=== PATIENT | female | born 1940 | race Caucasian/White ===

== ENCOUNTER 2023-09-07 18:27 | Observation (INO) | payer OTHER, SELFPAY ==
[2023-09-07 11:56] VITALS: BP 153/86
--- NOTE | 2023-09-07 13:40 | ED.GENMED ---
History of Present Illness
General
Chief Complaint: Fall
Source: patient
Exam Limitations: none
Time Seen by Provider: 09/07/23 13:18
Nursing documentation reviewed up to this point in time: agreed with
Travel History
Have you had any contact with someone who has COVID-19?: No
Do you have any symptoms of coronavirus? Fever > 100 degrees, chills, cough, shortness of breath, sore throat, loss of taste or smell, muscle aches, or headache?: No
History of Present Illness
History of Present Illness:
pt is a 83 y/o F with
here after fall mechanical onto buttocks yesterday 3 pm when she accidentally missed a step in her basement. pt says she landed on her buttocks, was able to get herself up and walk up the steps with her cane. she says that she had trouble as the
day went on with getting up from sitting and wasn't able to get up her steps to get to bed at night so she slept in a chair. she did well overnight but has pain wiht movement of her right hip
feels better if she pushes on her buttocks
no numbness/tingling/weakness, no head strike, no incontinence
she also has wounds on her left 4th and 5th fingers from scraping on the railing which she put bandaids on
tetanus is unknown
last dose tylenol 8 am.
Review of Systems
Review of Systems
Allergies reviewed?: Yes
All Other Systems: Not applicable
Phy Exam
Physical Exam
Physical Exam:
GENERAL: Alert , in no apparent distress
HEAD: NCAT
NECK: no midline tenderness, active ROM intact, no paraspinal muscle tenderness;
EYE: pupils equal and reactive, EOMs intact.
ENT: o/p clr, mmm. no hemotympanum
CARDIAC: Regular rate and rhythm, no edema
LUNGS: Clear breath sounds bilaterally, no acute respiratory distress, no wheezes/rales/rhonchi
ABDOMEN: Soft, without focal tenderness, no r/g, no cvat
buttocks: right mild tenderness SI joint; no bruising
NEUROLOGICAL: Alert and oriented, no focal neuro deficits, CN intact, 5/5 strength, sensation intact
SKIN: Warm and dry,
MUSCULOSKELETAL: No edema, well perfused.
right posterior buttocks/hip region pain
able to flex and rotate his knee/hip well
normal neg straight leg raise
PSYCH: Normal and appropriate interaction.
Course
Orders/Labs/Results
Orders:
Orders
09/07/23 13:35
Acetaminophen [Tylenol] 1,000 mg PO NOW STA
Tetanus/Diphth/Acelpertussis [Adacel] 0.5 ml IM .ONCE ONE
Hip, Right 2-3 Views [CR Hip - RT w/wo Pel 2-3 Vw*] Urgent
Comment:
Reason For Exam: right hip posterior pain after fall
Include a pelvis x-ray?: Yes
Lumbar Spine Complete, 4 View [CR Lumbar Spine Comp Min 4 Vw*] Urgent
Comment:
Reason For Exam: lower back/hip pain after fall
09/07/23 Dinner
Regular
At Your Request: Full Participation
Does patient need a safe tray?: No
09/07/23 15:56
CT Pelvis W/o Iv Contrast Urgent
Comment:
Reason For Exam: request by ortho to eval for post ring injury
09/07/23 17:56
Metoprolol [Lopressor] 50 mg PO NOW STA
09/07/23 17:58
Admit/Transfer Patient As Directed
Co-Sign Provider:
Level of Care: Observation services
Assign to:: Medical/Surgical
Physician / Group: hospitalist-Francisco
Diagnosis: pelvic fracture
09/07/23 17:59
Code Status As Directed
Resuscitation Status: Full Code
09/07/23 19:15
HYDROmorphone [Dilaudid] 0.25 mg IV Q4HPRN PRN
Magnesium Hydroxide [Milk of Magnesia] 30 ml PO DAILYPRN PRN
Oxycodone [Roxicodone] 5 mg PO Q4HPRN PRN
Tamsulosin [Flomax] 0.4 mg PO DAILYPRN PRN
09/07/23 19:15
ORTHOPEDIC CONSULT Routine
Consulting Provider: Tam Valadez
Was physician already notified: Yes
Activity As Directed
Activity Level: As Tolerated
Comment: toe touch weight bearing right LE with walker (for 4 weeks) as per ortho
Bladder Scan As Directed
Follow Bladder Retention/Intermittent Cath Algorithm?: Yes
PRN if no void in __ hours: 6
Comment: if not voiding 6 hrs upon arrival to floor, bladder scan & follow algorithm
Intake/ Output As Directed
Frequency: Per unit guidelines
Pneumatic Compression Sleeves As Directed
Type: Knee high
Comment: while in bed
Straight Cath As Directed
Frequency: Per Retention Algorithm
Additional Instructions: straight cath as needed per acute urinary retention algorithm for 24 hrs
Additional Instructions: for bladder scan greater than 400 mL
Vital Signs As Directed
Frequency: Per unit guidelines
Weight Bearing Status As Directed
Weight bearing to: Bilateral lower extremity
Type: Toe touch
Ot Eval And Treat Routine
Pt Eval And Treat Routine
Activity Level: As Tolerated
DX Deep Vein Thrombosis Video Routine
09/07/23 20:00
Acetaminophen [Tylenol] 650 mg PO Q4HWA
Docusate Sodium [Colace] 100 mg PO BID
Sennosides [Senokot] 17.2 mg PO BID
09/08/23 06:02
Complete Blood Count/No Diff IN AM
Comprehensive Metabolic Panel IN AM
Magnesium IN AM
09/08/23 08:00
Amlodipine [Norvasc] 10 mg PO DAILY
09/08/23 18:00
Metoprolol [Lopressor] 50 mg PO QPM
Vital Signs
Initial and Last Documented VS:
Initial Vital Signs
Temp Pulse Resp BP Pulse Ox
98.0 F 91 18 153/86 99
09/07/23 11:56 09/07/23 11:56 09/07/23 11:56 09/07/23 11:56 09/07/23 11:56
Last Documented Vital Signs
Temp Pulse Resp BP Pulse Ox
98.3 F 91 18 185/77 96
09/10/23 19:37 09/10/23 19:37 09/10/23 19:37 09/10/23 19:37 09/10/23 19:37
MDM/Problems Addressed
Differential Diagnosis Includes:
pelvic fracture, contusion
MDM/Problems Addressed:
83 y/o F with mechanical fall yesterday
lives alone
did not strike head
right posterior buttock/groin pain
able to rotate hip
no midline tenderness
xray reviewed by me, superior and inferior pubic ramus
d/w ortho dr valadez who requested CT of the pelvis to exclude intraarticular extension into the SI joint
the CT did not show any extension
pt will be toe touch weight bearing with walker for 4 weeks
she lives alone and has a lot of pain
i spoke with case managment for placement for rehab but she will need to be admitted for PT to see her and eval.
*Critical Care Note
Total Time (30-74mins, 75-104mins- exclusive of procedures): Not Applicable
ED Attending Note
-
Portions of this chart may have been created with voice recognition software.� Occasional wrong word or��sound alike� substitutions may have occurred due to the inherent limitations of voice recognition software.
Discharge Plan
Departure
Patient Disposition: Admit
Date of Disposition: 09/07/23
Time of Disposition: 17:29
Admit to: Med/Surg
Presentation/result/management discussed w/ accepting MD/DO: Hospitalist
Condition: Fair
Covid-19: Not Applicable
Discharge Problem:
Closed pelvic fracture
Interventions
Interventions:
*Risk Screen - Suicide Last Done: 09/07/23 23:31
*General Assessment Last Done: 09/07/23 11:56
*Neglect/Abuse Screening Last Done: 09/07/23 11:56
ED- Fall Risk Assessment Last Done: 09/07/23 18:20
*ED COVID-19 Vaccine History Last Done: 09/07/23 23:31
*Nursing Disposition Last Done: 09/07/23 19:07
ED-Musculoskeletal Assessment Last Done: 09/07/23 12:29
ED- Neurological Assessment Last Done: 09/07/23 12:29
ED-Skin Assessment Last Done: 09/07/23 12:29
Discharge Date and Time
Discharge Date/Time: 09/07/23 19:07
[2023-09-07] MEDS: ADACEL 0.5 ML IM (13:52)
[2023-09-07] MEDS: TYLENOL 1000 MG PO (13:52)
--- NOTE | 2023-09-07 16:11 | CM ---
CM was consulted for possible placement efforts. Patient lives alone and is unable to ambulate safely at this time. Patient pending CT scan for further orthopedic recommendations. CM will continue to follow as needed.
--- NOTE | 2023-09-07 18:03 | HPS.HSE ---
Family Physician
-
Family Physician: Crow Miller
Chief Complaint
-
fall
History of Present Illness
Patient is An 83-year-old female an 83-year-old female who lives alone and walks with a cane due to a history of osteoporosis. Patient stated she was walking down the steps and missed the last step yesterday. She twisted and landed flat on her
back. She did get up on her own and went up the steps. She then started having pain and soreness. She did not have any pain or soreness today. She told her daughter what happened (her daughter is a nurse practitioner) who instructed her to come
to the emergency department. Workup finds her to have nondisplaced pubic rami fractures and the patient is being brought in as observation.
Medical History
Past Medical History
Past Medical History: Reports Other
Additional Past Medical History:
Osteoporosis
Essential hypertension
Torn retina of the left eye
Past Surgical History: Reports Other
Additional Past Surgical History:
4 surgeries on her left eye
Hysterectomy
Social History
Tobacco: Non-smoker
Alcohol: None
Drug: None
Personal: Single
Living: Alone
Family History
Family History: Not pertinent
Allergies / Home Medications
Allergies reflects when Allergies were last updated in [employer].
Home Medications with original date entered in [employer]
Allergy/Medication List:
Allergies
Allergy/AdvReac Type Severity Reaction Status Date / Time
No Known Allergies Allergy Unverified 09/07/23 11:59
Home Medications
amlodipine 10 mg tablet 10 mg PO DAILY 09/07/23
metoprolol tartrate 50 mg tablet 50 mg PO QPM 09/07/23
Medication reconciliation was done by myself
Review of Systems
-
History Source: Patient
A 12 point ROS was completed and negative except as noted: Yes
Constitutional: Reports No Symptoms
EENT: Reports No Symptoms
Respiratory: Reports No Symptoms
Cardiac: Reports No Symptoms
Abdomen/GI: Reports No Symptoms
: Reports No Symptoms
Musculoskeletal: Reports No Symptoms (She is having soreness but no overt pain)
Skin: Reports No Symptoms
Neurological: Reports No Symptoms
Endocrine: Reports No Symptoms
Hematologic/Lymphatic: Reports No Symptoms
Psych: Reports No Symptoms
Physical Exam
Vital Signs
Vital Signs
Temp Pulse Resp BP Pulse Ox
98.0 F 91 18 153/86 99
09/07/23 11:56 09/07/23 11:56 09/07/23 11:56 09/07/23 11:56 09/07/23 11:56
Physical Exam
General: Well Developed, Well Nourished and No Apparent Distress
HEENT: NormoCephalic and Atraumatic; No Oxygen
Respiratory: Clear; No Wheezes, Rales, Rhonchi or Crackles
Cardiac: S1/S2, Regular Rhythm and Murmur (Patient has never been told that she has a murmur)
GI: Soft, Non Tender, Non Distended and Normal Bowel Sounds
Musculoskeletal: No Clubbing and No Cyanosis; No No Edema (Trace edema at the feet bilaterally)
Skin: Warm
Neuro: Awake, Alert and Nonfocal/grossly intact
Psych: Calm
Laboratory Results
-
No labs drawn by the emergency department
Impression/Plan
-
Patient is an 83-year-old female
Fall with pubic rami fractures--usually nonsurgical fractures--orthopedics has been consulted--she can be weightbearing with toe-touch with walker for 4 weeks--CAT scan done of the pelvis shows acute nondisplaced fractures of the right pubic
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
Essential hypertension--continue amlodipine in the morning and metoprolol tartrate in the evening
Osteoporosis--noted--patient is not on any medications for this
Heart murmur--patient has never been told she has a heart murmur--consideration could be made for echocardiogram, however this can be done as an outpatient
Constipation noted by CAT scan--bowel regimen as needed
DVT prophylaxis--sequential compression devices while in bed
CODE STATUS--full code
[2023-09-07 18:15] VITALS: BP 168/112
[2023-09-07] MEDS: LOPRESSOR 50 MG PO (18:18)
[2023-09-07 18:21] VITALS: BMI 29.5
[2023-09-07 19:32] VITALS: BP 177/84
[2023-09-07 19:34] VITALS: BMI 28.5
[2023-09-07] MEDS: SENOKOT PO (21:25)
[2023-09-07] MEDS: COLACE PO (21:25)
[2023-09-07] MEDS: ROXICODONE 5 MG PO (21:27)
[2023-09-07] MEDS: TYLENOL 650 MG PO (21:28)
[2023-09-07 23:19] VITALS: BP 153/63
[2023-09-08] MEDS: TYLENOL PO (01:33)
[2023-09-08] MEDS: TYLENOL 650 MG PO ×5 (04:02→20:25)
[2023-09-08] MEDS: ROXICODONE 5 MG PO ×3 (04:03→23:21)
--- NOTE | 2023-09-08 04:26 | PTCARENOTE ---
1930 received patient to room 409-1 via stretcher. patient OX3, VSS, oriented to room, call barboza and inst on POC. all questions addressed. Call barboza within reach.
[2023-09-08 07:00] LABS: Hematocrit 35.7 % (37.0-47.0); Hemoglobin 12.3 g/dL (12.0-16.0); Mean Corp Hgb Conc. 34.5 g/dL (33.0-37.0); Mean Corpuscular Hgb 31.3 pg (27.0-31.0); Mean Corpuscular Volume 90.8 fL (81.0-99.0); Mean Platelet Volume 10.9 fL (7.4-10.4); Platelet Count 186 10^3/uL (130-400); Red Blood Cell Count 3.93 10^6/uL (4.20-5.40); Red Cell Dist. Width 14.6 % (11.5-14.5); White Blood Cell Count 8.6 10^3/uL (4.8-10.8)
[2023-09-08 07:20] VITALS: BP 152/66
[2023-09-08 07:25] LABS: ALT (SGPT) 18 U/L (0-35); AST (SGOT) 56 U/L (14-36); Albumin 3.7 g/dl (3.5-5.0); Alkaline Phosphatase 74 U/L (38-126); Blood Urea Nitrogen 20 mg/dl (7-17); Carbon Dioxide 28 mmol/L (22-30); Chloride 103 mmol/L (98-107); Estimated Creatinine Clearance 56 ml/min; Glucose 95 mg/dl (70-99); Magnesium 2.1 mg/dl (1.6-2.3); Potassium 4.2 mmol/L (3.5-5.1); Sodium 136 mmol/L (135-145); Total Bilirubin 1.3 mg/dl (0.2-1.3); Total Protein 6.2 g/dl (6.3-8.2); eGFR > 60.00
--- NOTE | 2023-09-08 07:38 | W.PN.UPDATE ---
Addendum entered and electronically signed by Tam Leo MD 09/08/23 12:29:
I evaluated the patient at bedside and agree with the consult note.
83-year-old female who lives alone sustained a trip and fall going down her cellar stairs yesterday. She landed on the right flank and had immediate pain. She has been treated for knee arthritis in the past. She denies distal numbness or tingling
On exam the patient has intact motor distally on the right. She has pain with active elevation and motion of the right leg.
Pelvis x-rays and CT show nondisplaced fractures of the superior and inferior pubic rami on the right. CT scan does not show signs of posterior ring injury such as SI joint widening or sacral fracture.
Assessment and plan:
83-year-old female status post right pelvic ring injury with nondisplaced superior and inferior pubic rami fractures after a fall. We discussed treatment options including nonoperative and operative treatments. We discussed that her fracture
should be able to heal nonoperatively. We discussed touchdown weightbearing on the right lower extremity with use of a walker. She may follow-up in the office in 4 weeks for repeat x-rays. At that time if her x-rays appear unchanged without
displacement and she may advance her weightbearing to weightbearing as tolerated with a walker. All questions were answered.
Maynor Leo MD
Original Note:
Update Note
Progress Note Update
Full orthopedic consult dictated:
Dx: Right acetabular fracture
Plan: Toe-touch weightbearing right lower extremity for 4 weeks, PT/OT, pain control and return to office 4 weeks for x-ray
[2023-09-08] MEDS: DESENEX/MITRAZOL/ZEASORB 1 APPLIC TOPICAL ×2 (09:26→20:25)
[2023-09-08] MEDS: SENOKOT PO (09:26)
[2023-09-08] MEDS: COLACE PO (09:26)
[2023-09-08] MEDS: NORVASC 10 MG PO (09:27)
--- NOTE | 2023-09-08 11:33 | W.PN.HOSP.TC ---
Today's Communication/Plan
-
await PT/OT
Assessment / Plan
Assessment / Plan
pt is an 83 year old female
Fall with pubic rami fractures--nonsurgical--apprec orthopedics--she can be weightbearing with toe-touch R LE with walker for 4 weeks--CAT scan done of the pelvis shows acute nondisplaced fractures of the right pubic acetabular junction and right
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
Essential hypertension--continue amlodipine in the morning and metoprolol tartrate in the evening
Osteoporosis--noted--patient is not on any medications for this
Heart murmur--patient has never been told she has a heart murmur--consideration could be made for echocardiogram, however this can be done as an outpatient
Constipation noted by CAT scan--bowel regimen as needed
DVT prophylaxis--sequential compression devices while in bed
CODE STATUS--full code
Anticipated Discharge: Within 24 hours
Subjective/Interval History
-
Date of Service: September 08, 2023
pt without c/o--waiting for PT
Objective Data
-
Labs:
Laboratory Results
09/08/23
06:02
WBC 8.6
Hgb 12.3
Hct 35.7 L
Plt Count 186
Sodium 136
Potassium 4.2
Chloride 103
Carbon Dioxide 28
BUN 20 H
Creatinine 0.8
Glucose 95
Calcium 10.0
Total Bilirubin 1.3
AST 56 H
ALT 18
Alkaline Phosphatase 74
Vital Signs:
max temp for 24 hours
09/07/23
23:19
Temp 98.5 F
Vital Signs
Temp Pulse Resp BP Pulse Ox
98 F 57 20 152/66 97
09/08/23 07:20 09/08/23 09:27 09/08/23 07:20 09/08/23 09:27 09/08/23 09:21
I&O
09/07/23 09/08/23 09/09/23
06:59 06:59 06:59
Intake Total 0 / 0
Output Total 150 / 150
Balance -150 / -150
Review of Systems
-
All other systems: Reviewed and negative
Physical Exam
-
General: Well Developed, Well Nourished and No Apparent Distress
HEENT: Normocephalic and Atraumatic
Respiratory: Clear to Auscultation; Negative Wheezes or Rhonchi
Cardiac: Regular Rhythm, S1/S2 and Murmur
GI: Soft, Nontender, Nondistended and Normal Bowel Sounds
Musculoskeletal: No Clubbing and No Cyanosis
Neuro: Awake and Alert
--- NOTE | 2023-09-08 12:09 | CM ---
Addendum entered by Fidelina Crawford RN 09/08/23 13:44:
PT & OT recommend skilled rehab.
Phone call to daughter Shari; left message requesting callback today for d/c planning.
Plan probable SNF for rehab.
Addendum entered by Fidelina Crawford RN 09/08/23 12:21:
MCCLELLAN Letter done.
Original Note:
Patient with Dx pelvic Fx. Room air. Toe touch wt bearing R LE with walker for 4 weeks. PT & OT Evals pending.
Met with patient who resides alone in a 2 story house with no PEDRO PABLO when using garage entrance. Bedroom/bath on 2nd floor.
The patient was independent in ADLs and ambulation using her SPC, until she fell.
Patient states she feels she fell at home due to blurred vision OS which has been ongoing post eye surgeries.
Patient unable to drive due to blurred vision and has a friend take her food shopping.
DME - [facility], [facility]
No prior VN or SNF.
PCP - Crow Miller
Pharmacy - [facility] [place]
Patient hoping she can return home. Discussed that if she is not independent in her mobility she will need help at home, otherwise should consider SNF for rehab if recommended.
Plan follow up after PT/OT Evals and contact daughter.
[2023-09-08 13:02] VITALS: BP 154/70; PULSE 71; O2SAT 96
[2023-09-08 13:03] VITALS: BP 154/70; PULSE 68; O2SAT 96
[2023-09-08 15:10] VITALS: BP 141/80
--- NOTE | 2023-09-08 16:14 | PTCARENOTE ---
Pt AAO x3, GREEN, able to position self in bed with minimal assistance. VSS On room air- pulse ox 97%, no c/o SOB. Abd soft,rounded, kiya PO well. Purewick catheter intact/patent mod amts clear evan urine. Resting quietly at present; denies
discomfort. Will continue to monitor.
[2023-09-08] MEDS: LOPRESSOR 50 MG PO (17:59)
[2023-09-08] MEDS: COLACE 100 MG PO (20:25)
[2023-09-08] MEDS: SENOKOT 17.1999999999999993 MG PO (20:25)
[2023-09-08 23:55] VITALS: BP 136/62
[2023-09-09] MEDS: TYLENOL PO ×2 (00:56→05:30)
[2023-09-09] MEDS: ROXICODONE 5 MG PO ×4 (05:44→21:47)
[2023-09-09 07:30] VITALS: BP 129/75
[2023-09-09] MEDS: DESENEX/MITRAZOL/ZEASORB 1 APPLIC TOPICAL ×2 (09:35→20:14)
[2023-09-09] MEDS: SENOKOT 17.1999999999999993 MG PO ×2 (09:36→20:14)
[2023-09-09] MEDS: NORVASC 10 MG PO (09:36)
[2023-09-09] MEDS: COLACE 100 MG PO ×2 (09:36→20:14)
[2023-09-09] MEDS: TYLENOL 650 MG PO ×5 (09:37→23:10)
--- NOTE | 2023-09-09 13:18 | CM ---
Addendum entered by Fidelina Crawford RN 09/09/23 15:50:
SNF referrals reviewed- accepted by both [facility] & [facility].
Spoke with daughter again; she spoke with her mother who wants [facility]. Daughter aware bed will be available tomorrow after SNF auth obtained, and that SNF only has a semi-private room.
Spoke with Coreen, [facility]; they can accept the patient tomorrow once auth is obtained. NPI Dr Morocho [id number], . The phone for report [phone], fax [phone].
Plan insurance auth tomorrow for d/c to [facility] SNF.
Original Note:
Patient with Dx pelvic Fx. Room air. Toe touch wt bearing R LE with walker for 4 weeks. PT & OT recommend skilled rehab.
Spoke with daughter Shari, who is HYDROLOGIC ENGINEER at a SNF in ; discussed short term rehab and local SNFs with ratings. Daughter agrees to referrals to [facility] & [facility] and is hoping for a private room. She will talk with her mother again
about going to SNF.
SNF referrals placed.
Plan follow up SNF referrals.
--- NOTE | 2023-09-09 14:39 | W.PN.HOSP.TC ---
Today's Communication/Plan
-
waiting for d/c
Assessment / Plan
Assessment / Plan
pt is an 83 year old female
Fall with pubic rami fractures--nonsurgical--apprec orthopedics--she can be weightbearing with toe-touch R LE with walker for 4 weeks--CAT scan done of the pelvis shows acute nondisplaced fractures of the right pubic acetabular junction and right
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
Essential hypertension--continue amlodipine in the morning and metoprolol tartrate in the evening
Osteoporosis--noted--patient is not on any medications for this
Heart murmur--patient has never been told she has a heart murmur--consideration could be made for echocardiogram, however this can be done as an outpatient
Constipation noted by CAT scan--bowel regimen as needed
DVT prophylaxis--sequential compression devices while in bed
CODE STATUS--full code
medically stable for d/c
Anticipated Discharge: Within 24 hours
Subjective/Interval History
-
Date of Service: September 09, 2023
pt with pelvic pain with movement
Objective Data
-
Vital Signs:
max temp for 24 hours
09/08/23
15:10
Temp 98.1 F
Vital Signs
Temp Pulse Resp BP Pulse Ox
98.3 F 64 18 129/75 95
09/09/23 07:30 09/09/23 09:36 09/09/23 07:30 09/09/23 09:36 09/09/23 09:00
I&O
09/08/23 09/09/23 09/10/23
06:59 06:59 06:59
Intake Total 0 / 0 960 / 960
Output Total 150 / 150 600 / 600
Balance -150 / -150 360 / 360
Review of Systems
-
All other systems: Reviewed and negative
Physical Exam
-
General: Well Developed, Well Nourished and No Apparent Distress
HEENT: Normocephalic and Atraumatic
Respiratory: Clear to Auscultation; Negative Wheezes or Rhonchi
Cardiac: Regular Rhythm, S1/S2 and Murmur
GI: Soft, Nontender, Nondistended and Normal Bowel Sounds
Musculoskeletal: No Clubbing, No Cyanosis and No Edema
Neuro: Awake
Psych: Calm
[2023-09-09 15:20] VITALS: BP 167/75
[2023-09-09] MEDS: LOPRESSOR 50 MG PO (17:25)
[2023-09-09] MEDS: MILK OF MAGNESIA 30 ML PO (20:15)
[2023-09-09 23:46] VITALS: BP 146/63
[2023-09-10] MEDS: TYLENOL PO (04:05)
[2023-09-10] MEDS: COLACE 100 MG PO ×2 (07:48→19:37)
[2023-09-10] MEDS: SENOKOT 17.1999999999999993 MG PO ×2 (07:48→19:37)
[2023-09-10] MEDS: ROXICODONE 5 MG PO ×3 (07:48→17:51)
[2023-09-10] MEDS: TYLENOL 650 MG PO ×4 (07:49→19:36)
[2023-09-10] MEDS: NORVASC 10 MG PO (07:49)
[2023-09-10] MEDS: DESENEX/MITRAZOL/ZEASORB 1 APPLIC TOPICAL ×2 (07:49→19:40)
[2023-09-10 07:58] VITALS: BP 176/69
--- NOTE | 2023-09-10 10:09 | PTCARENOTE ---
pt aaox3 states 10/10 pin in right hip. pain med given as ordered. pulses present in both feet. room air. breath sounds clear. pure wick in place
--- NOTE | 2023-09-10 13:16 | W.PN.HOSP.TC ---
Today's Communication/Plan
-
d/c to SNF
Assessment / Plan
Assessment / Plan
pt is an 83 year old female
Fall with pubic rami fractures--nonsurgical--apprec orthopedics--she can be weightbearing with toe-touch R LE with walker for 4 weeks--CAT scan done of the pelvis shows acute nondisplaced fractures of the right pubic acetabular junction and right
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
Essential hypertension--continue amlodipine in the morning and metoprolol tartrate in the evening
Osteoporosis--noted--patient is not on any medications for this
Heart murmur--patient has never been told she has a heart murmur--consideration could be made for echocardiogram, however this can be done as an outpatient
Constipation noted by CAT scan--bowel regimen as needed
DVT prophylaxis--sequential compression devices while in bed
CODE STATUS--full code
medically stable for d/c
Anticipated Discharge: Today
Subjective/Interval History
-
Date of Service: September 10, 2023
pt waiting for rehab
Objective Data
-
Vital Signs:
max temp for 24 hours
09/09/23
23:46
Temp 98.5 F
Vital Signs
Temp Pulse Resp BP Pulse Ox
98.1 F 63 18 176/69 96
09/10/23 07:58 09/10/23 07:58 09/10/23 07:58 09/10/23 07:58 09/10/23 07:58
I&O
09/09/23 09/10/23 09/11/23
06:59 06:59 06:59
Intake Total 960 / 960 480 / 480
Output Total 600 / 600 520 / 520
Balance 360 / 360 -40 / -40
Review of Systems
-
All other systems: Reviewed and negative
Physical Exam
-
General: Well Developed, Well Nourished and No Apparent Distress
HEENT: Normocephalic and Atraumatic
Respiratory: Clear to Auscultation; Negative Wheezes or Rhonchi
Cardiac: Regular Rhythm and S1/S2; Negative Murmur
GI: Soft, Nontender, Nondistended and Normal Bowel Sounds
Musculoskeletal: No Clubbing, No Cyanosis and No Edema
Neuro: Awake and Alert
Psych: Calm
--- NOTE | 2023-09-10 13:44 | CM ---
Addendum entered by Charu Martinez 09/10/23 15:15:
Auth approved by Lili for 8 days 09/09-09/16 [id number] update provided to Coreen at [facility]. Patient also approved for ambulance transportation [id number] please call report [phone], fax [phone].
Original Note:
Patient seen at bedside with physician. Patient is accepted at [facility] and will need transportation via ambulance due to fracture. Patient needs updated PT/OT to get authorization, awaiting updated notes. Patient daughter aware of plan and in
agreement. Patient will need auth. CM will continue to follow for discharge planning needs.
Plan; SNF; the phone for report [phone], fax [phone].
[2023-09-10 14:24] VITALS: BP 175/75; O2SAT 98
[2023-09-10 14:26] VITALS: BP 175/75; PULSE 79; O2SAT 97
[2023-09-10 15:20] VITALS: BP 147/67
--- NOTE | 2023-09-10 16:36 | W.DCSUMMARY ---
Discharge Summary
Discharge Data
Date of Admission: 09/07/23
Date of Discharge: 09/10/23
-
Pending Results: No
Hospital Course
Primary care physician : Crow Miller
Principal Discharge diagnosis : Fall with pubic rami fractures
Chronic Discharge diagnosis : Essential hypertension, osteoporosis, heart murmur, constipation
Hospital Course : Patient was an 83-year-old female who lives alone and walks with a cane due to her history of osteoporosis. She stated she was walking down the steps and missed the last step on the day prior to admission. She twisted and landed
flat on her back/buttock. She got up on her own and went up the steps. She then started having pain and soreness. She told her daughter what happened (her daughter was a nurse practitioner) who instructed her to come to the emergency department.
Workup found her to have nondisplaced pubic rami fractures and the patient was brought in as observation.
Problem #1: Fall with pubic rami fractures. Patient was seen in consultation by orthopedics and physical therapy and Occupational Therapy. CAT scan showed acute nondisplaced fractures of the right pubic acetabular junction and right inferior pubic
ramus. These are nonsurgical fractures. Orthopedics is recommending toe-touch with weightbearing as tolerated for 4 weeks. She should follow-up with orthopedics after that. Therapy is recommending skilled rehab. Patient is agreeable to that and
has been accepted.
Problem #2: All other medical issues. These include Essential hypertension, osteoporosis, heart murmur, constipation. These medical issues were stable during her hospitalization. Medications were continued as able. In regards to her heart
murmur, patient has never been told that she has a heart murmur. This can be worked up as an outpatient with echocardiogram. We will defer this to her primary care physician.
Patient is stable for discharge to rehab at this time. If there are any questions regarding this dictation or her hospital stay, please not hesitate to call. Our office number is [phone].
Important imaging findings :
CT SCAN PELVIS IMPRESSION:
1. ACUTE NONDISPLACED FRACTURES of the RIGHT PUBOACETABULAR JUNCTION and RIGHT INFERIOR PUBIC RAMUS.
2. 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
3. 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
4. Moderate diverticulosis in the sigmoid colon.
5. Large amount of fecal material in the rectum with moderate rectal distention and adjacent moderate edema in the presacral space.
Discharge Plan
-
Patient Disposition: Group Home/SNF
Discharge Diagnosis/Procedures: Fall with pubic rami fractures nonsurgical, essential hypertension, osteoporosis, heart murmur, constipation
Condition: Fair
Diet: As tolerated and Regular
Activity: As tolerated
Driving Restrictions: As prior to admission
Bathing Restrictions: None
Referrals:
Crow Miller DO [Family Provider] - in less than 1 week
Prescriptions:
New
sennosides [Senna Laxative] 8.6 mg Tablet
17.2 mg PO BID Qty: 0 0RF
acetaminophen 325 mg Tablet
650 mg PO Q4HWA Qty: 0 0RF
miconazole nitrate [Miconazorb AF] 2 % Powder
1 applic topical BID Qty: 0 0RF
tamsulosin 0.4 mg Capsule
0.4 mg PO DAILYPRN PRN (Reason: bladder scan volume > 400 mL) Qty: 0 0RF
docusate sodium 100 mg Capsule
100 mg PO BID Qty: 0 0RF
oxycodone 5 mg Tablet
5 mg PO Q4HPRN PRN (Reason: moderate pain) Qty: 10 0RF
Rx Instructions:
take 1 for moderate pain and 2 for severe
Continued
amlodipine 10 mg Tablet
10 mg PO DAILY
metoprolol tartrate 50 mg Tablet
50 mg PO QPM
Patient Comments:
09/07/23 - PATIENT FILLING FOR BID BUT WAS OLD TO GO BACK DOWN TO DAILY AFTER EYE SURGERY
Discontinued
ibuprofen [Advil] 200 mg Tablet
400 mg PO Q8HPRN PRN (Reason: MILD PAIN)
Discharge Orders:
Discharge Patient (As Directed); Ordered 09/10/23
Ordered By: Marissa Singh
Discharge Date and Time
Print Language: HONDURAN
[2023-09-10] MEDS: LOPRESSOR 50 MG PO (17:51)
--- NOTE | 2023-09-10 18:36 | PTCARENOTE ---
report called to [facility]
[2023-09-10 19:37] VITALS: BP 185/77
== END 2023-09-10 20:15 ==
LOC: 4 EAST ACU 18:27
PROVIDERS: ADMITTING PHYSICIAN Internal Medicine; CONSULT PHYSICIAN Orthopaedic Surgery; EMERGENCY PHYSICIAN Emergency Medicine; FAMILY PHYSICIAN Family Medicine
DX: M80.051A Age-related osteoporosis with current pathological fracture, right femur, initial encounter for fracture (principal); M80.0AXA Age-related osteoporosis with current pathological fracture, other site, initial encounter for fracture; H53.8 Other visual disturbances; M25.551 Pain in right hip; M16.0 Bilateral primary osteoarthritis of hip; I10 Essential (primary) hypertension; R01.1 Cardiac murmur, unspecified; K59.00 Constipation, unspecified; M51.36 Other intervertebral disc degeneration, lumbar region; M47.816 Spondylosis without myelopathy or radiculopathy, lumbar region; K57.30 Diverticulosis of large intestine without perforation or abscess without bleeding; W10.8XXA Fall (on) (from) other stairs and steps, initial encounter; Y93.01 Activity, walking, marching and hiking; Y92.008 Other place in unspecified non-institutional (private) residence as the place of occurrence of the external cause; Z60.2 Problems related to living alone
CPT/HCPCS: 72110; 72192; 73502; 80053; 83735; 85027; 90471; 90715; 97162; 97167; 97530; 97535; 99285; G0378